=== PATIENT | female | born 1995 ===

== ENCOUNTER → 2020-02-10 15:20 | Outpatient (CLI) | payer OTHER, SELFPAY ==
--- NOTE | 2020-02-10 | DI.US.S_ITS ---
PROCEDURE: US OB >= 14 WEEKS FETUS INDICATIONS: ANATOMY SCAN OUTSIDE/PRIOR DATING DATA: Last menstrual period (LMP): 09/24/2019. LMP-based estimated date of delivery (KEO): 06/30/2020 . First dating scan (date and location): 02/10/2020 . Estimated date of delivery (KEO) from first dating scan: 06/23/2019 TECHNIQUE: Real-time scanning was performed of the fetus, with image documentation and biometric measurements. Endovaginal scanning: No COMPARISON: None. FINDINGS: General: A single living intrauterine gestation is present. Presentation: Breech. Placenta: Placental position is anterior , without previa. Amniotic fluid index: 17.2 cm, normal range is 5-24 cm. heart rate: 141 beats per minute. Maternal cervical canal: 5.3 cm long. Normal lower limit is 2.5 cm. biometrics: Biparietal diameter: 21 weeks 4 days Head circumference: 20 weeks 6 days Abdominal circumference: 20 weeks 6 Femur length: 20 weeks 5 days Estimated gestational age from initial scan: 21 weeks Composite gestational age from present scan: 21 weeks Estimated weight and percentile: 379 g; 90 second percentile Measurement variability for biometric dating: +/- 7 days from 14 weeks to 15 weeks 6 days gestation, +/- 10 days from 16 weeks to 21 weeks 6 days gestation, +/- 2 weeks from 22 weeks to 27 weeks 6 days gestation, +/- 3 weeks for 28 weeks gestation or later. weight reference: 4500 g or EFW >90/95% is considered macrosomia or large for gestational age. EFW <10% is small for gestational age. EFW 5% or less is considered intra-uterine growth restriction. Anatomic survey: Neuro: Ventricles are non-dilated at less than 10 mm. Cisterna magna is normal at 3-11 mm. Cerebellum is normal in size and morphology. Nuchal skin fold: Normal at less than 6 mm between 14-21 weeks gestational age. Face: Nose and lips, facial profile are normal. Spine: No evidence for spina bifida. Heart: 4-chambered heart is present, with normal ventricular outflow tracts. Diaphragm: Diaphragm is intact. Stomach: Left-sided stomach is present. Kidneys: No hydronephrosis. Normal is less than 5 mm in 2nd trimester, less than 7 mm in 3rd trimester. Cord: 3-vessel cord has orthotopic insertion. Bladder: Normal in size. Extremities: All 4 extremities identified. IMPRESSION: 1. Single living fetus with composite gestational age of 21 weeks corresponding to ultrasound KEO of 06/22/2020. 2. Normal anatomic survey. Dictated by: Kev ROCK Interpreted: Keisha Purvis MD on 02/10/2020 at 16:59 Approved by: Keisha Purvis M.D. on 02/10/2020 at 17:03
== END ==
PROVIDERS: Referring Provider Nurse Practitioner Obstetrics & Gynecology; Visit Provider Nurse Practitioner Obstetrics & Gynecology
DX: Z34.93 Encounter for supervision of normal pregnancy, unspecified, third trimester (principal); Z3A.21 21 weeks gestation of pregnancy
CPT/HCPCS: 76811

== ENCOUNTER → 2020-03-09 07:16 | Outpatient (CLI) | payer OTHER, SELFPAY ==
[2020-03-09 08:22] LABS: Glucose Fasting 76 mg/dL (70-100)
[2020-03-09 08:28] LABS: Hematocrit 29.9 % (36-46); Hemoglobin 10.3 g/dL (12.0-16.0); Mean Corpuscular HGB Conc 34.5 % (30-36); Mean Corpuscular Hemoglobin 31.5 PG (26-34); Mean Corpuscular Volume 91.4 fL (80-100); Platelet Count 169 X10^3/uL (150-400); Red Blood Cell Count 3.27 X10^6/uL (4.0-5.2); Red Cell Distribution Width 13.3 % (11.6-14.8); White Blood Cell Count 9.8 X10^3/uL (4.5-11.0)
[2020-03-09 09:35] LABS: Glucose 1 Hour 117 mg/dL (70-170)
[2020-03-09 11:04] LABS: Glucose Tol Interpretation INTERPRETATION
[2020-03-09 11:19] LABS: Glucose 2 Hour 138 mg/dL (70-140)
[2020-03-09 12:03] LABS: Glucose 3 Hour 103 mg/dL (70-115)
== END ==
PROVIDERS: PCP Nurse Practitioner Obstetrics & Gynecology; Referring Provider Nurse Practitioner Obstetrics & Gynecology; Visit Provider Nurse Practitioner Obstetrics & Gynecology
DX: Z34.90 Encounter for supervision of normal pregnancy, unspecified, unspecified trimester (principal); Z13.1 Encounter for screening for diabetes mellitus; Z3A.26 26 weeks gestation of pregnancy
CPT/HCPCS: 36415; 82951; 82952; 85027

== ENCOUNTER → 2020-04-13 15:46 | Outpatient (CLI) | payer OTHER, SELFPAY ==
--- NOTE | 2020-04-13 | DI.US.S_ITS ---
ULTRASOUND OF LEFT BREAST AND AXILLA: 04/13/2020 CLINICAL: Palpable left axilla lump. No prior exams were available for comparison. Color flow and real-time ultrasound of the left breast axilla were performed. Patel scale images of the real-time examination were reviewed. There is a 0.9 cm x 0.8 cm x 0.4 cm oval mass in the left axillary tail. This oval mass is hypoechoic. This correlates as palpated and with area of clinical concern. Color flow imaging demonstrates that there is an adjacent vascularity. IMPRESSION: SUSPICIOUS OF MALIGNANCY The 0.9 cm x 0.8 cm x 0.4 cm oval mass is at a low suspicion for malignancy. An ultrasound guided biopsy is recommended. Findings and recommendations were discussed with the patient during today's examination by Dr. Valadez. A telephone call about results and recommendations was also made by Dr. Gifford later same day. This exam was interpreted at Station ID: [id number]. Electronically Signed By: Jose Gifford M.D. at/:04/18/2020 10:00:03 letter sent: Biopsy Required Ultrasound BI-RADS: 4a Low suspicion for malignancy
--- NOTE | 2020-04-13 | DI.US.S_ITS ---
ULTRASOUND OF RIGHT AXILLA: 04/13/2020 CLINICAL: Palpable right axilla lump. No prior exams were available for comparison. Color flow and real-time ultrasound of the right axilla were performed. Patel scale images of the real-time examination were reviewed. There is a 1.9 cm x 1.3 cm x 1.3 cm wider than tall irregular mass in the right axillary which is under the skin surface without definite tract leading to the skin surface.This irregular mass is hypoechoic with no fatty hilum. Color flow imaging demonstrates that there is vascularity present. IMPRESSION: SUSPICIOUS OF MALIGNANCY The 1.9 cm x 1.3 cm x 1.3 cm wider than tall irregular mass has a differential diagnosis of a sebaceous cyst or an abnormally enlarged lymph node and is suspicious of malignancy. An ultrasound guided biopsy is recommended. Findings and recommendations were discussed with the patient during today's examination by Dr. Valadez. A telephone call about results and recommendations was also made by Dr. Gifford later same day. This exam was interpreted at Station ID: [id number]. Electronically Signed By: Jose Gifford M.D. at/:04/18/2020 10:00:32 letter sent: Biopsy Required Ultrasound BI-RADS: 4 Suspicious for malignancy
== END ==
PROVIDERS: PCP Nurse Practitioner Obstetrics & Gynecology; Referring Provider Nurse Practitioner Obstetrics & Gynecology; Visit Provider Nurse Practitioner Obstetrics & Gynecology
DX: O92.29 Other disorders of breast associated with pregnancy and the puerperium (principal)
CPT/HCPCS: 76882

== ENCOUNTER → 2020-05-02 09:04 | Outpatient (CLI) | payer OTHER, SELFPAY ==
--- NOTE | 2020-05-02 | DI.US.S_ITS ---
ULTRASOUND GUIDED BIOPSY RIGHT BREAST WITH MARKING DEVICE INSERTED AND POST ULTRASOUND IMAGIN05/02/2020 CLINICAL: Right axillary node biopsy with vision clip placement. PATIENT CONSENT: Risks (minor bleeding, infection, vasovagal reaction and repeat procedure), benefits and alternatives were explained to the patient and written informed consent was obtained. Correlation is made to exams dated: 04/13/2020 [facility] and 04/13/2020 [facility]. An ultrasound guided biopsy using real-time ultrasound was performed for the 1.9 cm x 1.3 cm x 1.3 cm mass located in the right axillary tail. The skin was prepped in the usual manner. Local anesthetic was administered to the access site. A skin douglas was made in the breast. The abnormality was approached from the lateral aspect. An 18 gauge biopsy needle was placed adjacent to the abnormality through an introducer device under ultrasound guidance. Once the needle was documented to be in the correct location, six cores were obtained using an automated biopsy gun. A clip was inserted into the biopsy cavity. A sterile dressing was applied to the access site. Post procedure ultrasound imaging demonstrates the location device at the targeted area. The specimens were sent to the laboratory for pathological analysis. Post-procedure mammogram not performed as patient is currently . IMPRESSION: ULTRASOUND GUIDED BIOPSY BENIGN Ultrasound guided biopsy of the 1.9 cm x 1.3 cm x 1.3 cm mass in the right axillary tail was successful with no apparent post procedure complications. Pathology indicates benign lactational change (LC). Recommend clinical followup. The previously seen palpable mass in the contralateral left breast was not reproduced on today's left breast ultrasound, so no left axillary biopsy was performed. Recommend 6 month follow up ultrasound for further evaluation. Findings and recommendations were discussed with the patient at the time of the exam. Future imaging is recommended as follows: 10/30/2020 follow-up left ultrasound. This exam was interpreted at Station ID: [id number]. Shahzad byers,acr/:05/04/2020 17:39:52
--- NOTE | 2020-05-02 | PATH_ITS ---
[facility] Accession Number: [id number] . 01 Material submitted: . axilla - RIGHT AXILLA . 01 Clinical history: . BILATERAL AXILLA BIOPSY . 01 Diagnosis: Soft Tissue, Right Axilla, Needle Core Biopsy: Benign breast tissue with lactational-like change. Negative for significant atypia and malignancy. See comment. [facility] 05/03/2020 1808 Local . 01 Comment: The presence of breast tissue in the axilla may represent axillary tail or accessory breast tissue. . 01 Electronically signed: . Cristina Lindquist MD, Pathologist NPI- [id number] . 01 Gross description: . RIGHT AXILLA: Received in formalin are multiple fragment(s) of dorsey, soft tissue measuring 0.1 x 0.1 x 0.1 cm to 0.6 x 0.1 x 0.1 cm submitted entirely in 1 cassette(s) /GERARD 05/02/2020 2303 Local . 01 Pathologist provided ICD-10: R22.2 . 01 CPT . 250727 Performed at: 01 [facility] [address] [place] [address], [place], [place] [id number] MD Benson Lee MD Phone: [phone]
== END ==
PROVIDERS: PCP Nurse Practitioner Obstetrics & Gynecology; Referring Provider Nurse Practitioner Obstetrics & Gynecology; Visit Provider Nurse Practitioner Obstetrics & Gynecology
DX: N63.31 Unspecified lump in axillary tail of the right breast (principal)
CPT/HCPCS: 38505; 76942

== ENCOUNTER → 2020-06-04 12:50 | Outpatient (ROUT) | payer OTHER, SELFPAY | PROVIDERS: PCP Nurse Practitioner Obstetrics & Gynecology; Visit Provider Nurse Practitioner Obstetrics & Gynecology | DX: Z34.90 Encounter for supervision of normal pregnancy, unspecified, unspecified trimester (principal); Z36.85 Encounter for antenatal screening for Streptococcus B; Z3A.36 36 weeks gestation of pregnancy | CPT/HCPCS: 87081 ==

== ENCOUNTER 2020-06-27 05:44 | Inpatient (IN) | payer OTHER, SELFPAY ==
--- NOTE | 2020-06-27 06:26 | PM.OBHP.1 ---
OB HPI Date/Time Date of admission: 06/27/20 Date Patient Seen: 06/27/20 Time Patient Seen: 06:00 History of Present Condition Chief complaint: Evaluation of Labor : 1 Para: 0 Estimated Date of Delivery: 06/30/20 Estimated Gestational Age (weeks): 39.4 Narrative: Yuli Sánchez is a 25 year old female @ [id number] here for evaluation of labor. Awoke @ 0300 w/ contractions that rapidly progressed in frequency and intensity. No VB or LOF. Now breathing through, moaning and swaying with strong contractions every 2 minutes. Uncomplicated PN care w/ CNM. Planning low intervention . Supported by , Grzegorz, and Claire dennis. History of Present care: good care, initiated at week # (8), number of visits (11) and pounds weight gain (41) Dating criteria: LMP confirmed by 1st trimester US Ultrasounds: normal mid trimester US Obstetrical complications: none Medical complications: other (Bialteral axillary masses, benign) Preadmission Labs Blood type: AB (+) positive -: Antibody screen: negative, GBS status: negative, HBsAG: negative, HIV: negative and RPR/VDLR: negative -: Chlamydia screen: not detected and Gonorrhea screen: not detected -: Rubella: immune PAP: Normal Cell-free DNA: Negative, male 3 hr GTT: 1 hr (117), 2 hr (138) and 3 hr (103) Fasting blood glucose: 76 Evaluation Evaluation Baseline heart rate: 130 Variability: Moderate (11-25) monitor accelerations: Present monitor decelerations: Absent Uterine Contraction Intensity: Strong/Firm Status: Category l Cervical dilation (cm): 4 Cervical effacement (%): 100 station: 0 PFSH Social History (Updated 06/27/20 @ 06:34 by Margy Prieto CNM) marital status: household members: spouse lives independently: Yes caregiver/support person: No education level: college occupational status: employed Smoking Status: Never smoker Meds Home Medications and Allergies Home Medications Medication Instructions Recorded Confirmed Type No Known Home Medications 06/27/20 06/27/20 History Allergies Allergy/AdvReac Type Severity Reaction Status Date / Time No Known Drug Allergies Allergy Verified 06/27/20 06:41 Review of Systems Review of Systems ROS: Yes All systems reviewed with the patient and are negative except as otherwise documented Exam Vital Signs (past 8 hours): BP 110/64, HR 66bpm, Afebrile Presentation: vertex Objective Labs Result Diagrams: 06/27/20 06:00 Labs: SARS-CoV-2: negative upon admission Assessment and Plan Assessment and Plan Assessment and Plan narrative: A: Term nullipara Active labor Anemia-resolved Thrombocytopenia No indication for GBS prophylaxis Cat I FHR P: Admit, routine orders. FHR by IA. Continuous labor support. Reassess in 4 hours or sooner, PRN.
[2020-06-27 06:41] VITALS: BP 110/60
[2020-06-27 07:19] LABS: Add Manual Diff / Slide Review NO; Basophils Absolute Auto 100 /uL (0-100); Basophils Percent Auto 0.8 % (0-2); Eosinophils Absolute Auto 100 /uL (0-450); Eosinophils Percent Auto 0.9 % (2-4); Hematocrit 34.5 % (36-46); Hemoglobin 11.4 g/dL (12.0-16.0); Lymphocytes Absolute Auto 2800 /uL (1100-4500); Lymphocytes Percent Auto 24.3 % (25-40); Mean Corpuscular Hemoglobin 28.8 PG (26-34); Mean Corpuscular Volume 87.3 fL (80-100); Monocytes Absolute Auto 800 /uL (0-900); Monocytes Percent Auto 7.4 % (3-14); Neutrophils Absolute Auto 7600 /uL (1500-7000); Neutrophils Percent Auto 66.6 % (50-75); Platelet Count 135 X10^3/uL (150-400); Red Blood Cell Count 3.96 X10^6/uL (4.0-5.2); Red Cell Distribution Width 16.1 % (11.6-14.8); White Blood Cell Count 11.4 X10^3/uL (4.5-11.0)
[2020-06-27 08:28] LABS: COVID19 - ADMIT (NP swab/PCR) Negative (Negative)
--- NOTE | 2020-06-27 08:46 | PM.OBPNLAB ---
Date/Time Date Patient Seen: 06/27/20 Time Patient Seen: 08:46 Pain Control Pain control: epidural Comments: Yuli labored well in the tub, in the room on hands and knees and on the ball. Requested an epidural with sensation of increasing rectal pressure. Now comfortable after combined spinal/epidural. Pelvic Exam Dilation (cm): 9 Effacement (%): 100 station: 0 Amniotic membrane status: Bulging Contractions Contractions on admission: regular Monitor mode: External Pitocin rate (mU/min): 0 Contraction frequency (min): 3 Contraction duration (min): 1 Contraction pattern: Regular Contraction intensity: Strong/Firm Status status: Category l Heart Rate Baseline: 150 Monitor Accelerations: Present Monitor Decelerations: Early Monitor Variability: Moderate Assessment and Plan Assessment: active labor Plan: continuous present management Comments: Anticipate NSVB. Reassess in 2-3 hours or sooner, PRN.
--- NOTE | 2020-06-27 08:48 | PM.AN.REGBLK ---
Regional Block Pre-procedure Procedure: Continuous Lumbar Epidural for L&D Attending OB provider: Margy Prieto PMH/GAURAV narrative: term labor, no complications Hx: No personal or family history of anesthesia problems. ASA Class: II Labs: Hct 34.5 % (36-46) L 06/27/20 06:00 Plt Count 135 X10^3/uL (150-400) L 06/27/20 06:00 Medications: Current Medications Generic Name Dose Route Start Last Admin Trade Name Freq PRN Reason Stop Dose Admin Carboprost Tromethamine 250 mcg 06/27/20 07:04 Carboprost 250 Mcg/Ml Ampul IM Q90M PRN Bleeding Lactated Ringer's 1,000 mls @ 100 mls/hr 06/27/20 07:15 Lactated Ringers IV CONT RODERICK Oxytocin/Lactated Ringer's 30 unit in 500 mls @ 200 mls/hr 06/27/20 07:04 Oxytocin Premix IV CONT PRN Bleeding Protocol Tranexamic Acid 1,000 mg/ 100 mls @ 400 mls/hr 06/27/20 07:04 Sodium Chloride IV NOW PRN Bleeding Methylergonovine Maleate 0.2 mg 06/27/20 07:04 Methylergonovine 0.2 Mg Tablet PO Q6HR PRN Heavy Bleeding Methylergonovine Maleate 0.2 mg 06/27/20 07:04 Methylergonovine 0.2 Mg/Ml Vial IM NOW PRN Bleeding Misoprostol 800 mcg 06/27/20 07:04 Misoprostol 200 Mcg Tablet MO NOW PRN Bleeding Misoprostol 1,000 mcg 06/27/20 07:04 Misoprostol 200 Mcg Tablet MO NOW PRN Bleeding Misoprostol 400 mcg 06/27/20 07:04 Misoprostol 200 Mcg Tablet SL NOW PRN Bleeding Oxytocin 10 unit 06/27/20 07:04 Oxytocin 10 Unit/Ml Vial IM NOW PRN Bleeding Allergies: Allergies Allergy/AdvReac Type Severity Reaction Status Date / Time No Known Drug Allergies Allergy Verified 06/27/20 06:41 Procedure Insertion date: 06/27/20 Insertion time: 08:30 Prep/Local: betadine x3 Interspace: L3-4 Patient position: sitting Needle: 18 gauge Slick (CSE: 27g Pencan through Juan Albertotead, clear CSF, 1mL 0.25% bupiv MPF) Loss of resistance with: saline KRYSTIN at (cm): 4 Catheter placed at SKIN (cm): 9 Catheter in SPACE (cm): 5 Insertion: No CSF, No Blood, No Paresthesia with insertion, No Paresthesia with injection and No Test dose reaction Initial Medications TEST DOSE time: 08:33 TEST DOSE: 1.5% lidocaine with epinephrine 1:200k (mL): 3 Infusion INFUSION: 0.125% bupivacaine and with fentanyl 2 mcg/mL Initial rate (mL/hr): 6 Subsequent interventions: 12:50 50mcg fentanyl and 5mL 0.25% bupivacaine, rate to 8mL/h. 15:20 to OR for CS Post-procedure Anesthesia time START: 08:30 Anesthesia time END: 15:20
[2020-06-27] MEDS: LACTATED RINGERS 1,000 ML 100 ML IV ×2 (09:19→16:15)
[2020-06-27] MEDS: FENT 2MCG/ML BUPIV 0.125% EPI 200 MCG/100 ML PLAST..BAG 10 MCG EPIDURAL (09:20)
--- NOTE | 2020-06-27 10:47 | PM.OBPNLAB ---
Date/Time Date Patient Seen: 06/27/20 Time Patient Seen: 10:47 Pain Control Pain control: tolerating well and epidural Comments: Yuli remains comfortable w/ epidural anesthesia. Has been able to rest and has good leg control for position changes. Pelvic Exam Dilation (cm): 9 Effacement (%): 100 station: 0 Amniotic membrane status: Bulging Comments: 0930- AROM, copious meconium stained fluid and OP position Contractions Date/Time contractions began: 0300 Contractions on admission: regular Monitor mode: External (coupling) Contraction frequency (min): 3 Contraction pattern: Regular Contraction intensity: Moderate (palpated during cervical exam) Status status: Category ll Heart Rate Baseline: 130 Monitor Accelerations: Present Monitor Decelerations: Early (recurrent. position dependent) and Variable (rare) Monitor Variability: Moderate Assessment and Plan Assessment: active labor Plan: begin patient augmentation Comments: COunseled on meconium stained amniotic fluid and will have RT at . Counseled on persistent OP position w/ minimal descent and recommendations for positions (exaggerated [employer]) and pitocin augmentation. Reassess in 2 hours or sooner, PRN.
[2020-06-27] MEDS: OXYTOCIN PREMIX 30 UNIT/500 ML PLAST..BAG IV (10:58)
--- NOTE | 2020-06-27 13:20 | P.PNOB_ITS ---
Date/Time Date Patient Seen: 06/27/20 Time Patient Seen: 12:50 Pain Control Pain control: tolerating well and epidural Comments: Patient has labored well in lots of different positions. VSS, see OBIX. Pelvic Exam Dilation (cm): 9 Effacement (%): 100 station: 0 Amniotic membrane status: Leaking (meconium stained amniotic fluid) Contractions Contractions on admission: regular Monitor mode: External (coupling) Pitocin rate (mU/min): 2 Contraction frequency (min): 3 Contraction duration (min): 1 Contraction pattern: Regular Contraction intensity: Strong/Firm (palpated during cervical exam) Intrauterine tone measurement: 185 Status status: Category ll Heart Rate Baseline: 130 Monitor Accelerations: Present Monitor Decelerations: Early Monitor Variability: Moderate Comments: IUPC placed position has changed from ROP to LOT w/ position changes Assessment and Plan Assessment: active labor Plan: continuous present management Comments: Counseled patient on no descent or cervical dilation in 4 hours. IUPC placed and contractions are borderline adequate. Recommend 2 hours of adequate contractions, then reassess. If no change, will recommend primary for arrest of active phase labor. Patient is agreeable to this, if needed. Notified anesthesia and Dr.Lawndale/OB back-up of possible in 1-2 hours.
--- NOTE | 2020-06-27 14:54 | PM.OBPNLAB ---
Date/Time Date Patient Seen: 06/27/20 Time Patient Seen: 14:45 Pain Control Pain control: epidural Pelvic Exam Dilation (cm): 9 Effacement (%): 100 station: 0 Amniotic membrane status: Leaking (meconium stained amniotic fluid) Comments: IUPC pulled w/ unchanged exam Contractions Monitor mode: External (coupling) Pitocin rate (mU/min): 7 (pitocin shut off after unchanged CE) Contraction frequency (min): 3 Contraction duration (min): 1 Contraction pattern: Regular Contraction intensity: Strong/Firm (palpated during cervical exam) Intrauterine tone measurement: 205 Status status: Category ll Heart Rate Baseline: 135 Monitor Accelerations: Present Monitor Decelerations: Variable (rare) Monitor Variability: Moderate Assessment and Plan Assessment: active labor Plan: Comments: Consulted for primary for arrest of active phase labor. ALEXANDRIA Hinojosa notified the OR.
--- NOTE | 2020-06-27 15:14 | PM.OBPNLAB ---
Date/Time Date Patient Seen: 06/27/20 Time Patient Seen: 15:14 Pain Control Pain control: epidural Pelvic Exam Dilation (cm): 9 Effacement (%): 100 station: 0 Amniotic membrane status: Leaking (meconium stained amniotic fluid) Contractions Monitor mode: External (coupling) Pitocin rate (mU/min): 7 Contraction frequency (min): 3 Contraction pattern: Regular Contraction intensity: Strong/Firm (palpated during cervical exam) Intrauterine tone measurement: 205 Status status: Category ll Heart Rate Baseline: 135 Monitor Accelerations: Present Monitor Decelerations: Variable Monitor Variability: Moderate Assessment and Plan Plan: Comments: Consulted due to arrest of dilation at 9cm for 7.5 hours, despite IUPC guided pitocin augmentation. Cat 2 EFM though with reassuring features, fetus largely in OP presentation. Discussed risks of infection, damage to surrounding organs, hemorrhage, risks in future pregnancies of abnormal placentation or uterine rupture. Compared these to odds of successful and safe vaginal delivery if continued labor. Informed consent obtained and consents signed. - 500mg azithromycen, 2g ancef - proceed with low transverse section
--- NOTE | 2020-06-27 15:28 | SUR.OPER ---
Supine on Padded OR bed, head on pillow, safety belt at thigh, arms secured on padded arm boards at <90 degrees abduction. Bump under right buttock. Legs uncrossed with pillow under knees, gel pad to heels, tape over blanket to lower legs.
[2020-06-27] MEDS: AZITHROMYCIN 500 MG in DEXTROSE 5% IN WATER 250 ML IV (15:31)
[2020-06-27] MEDS: CEFAZOLIN 2 GM/100 ML FROZ.PIGGY IV (15:41)
--- NOTE | 2020-06-27 15:56 | SUR.OPER ---
Viable male delivered at 1547. Cord blood and placenta sent with L&D nurse.
--- NOTE | 2020-06-27 16:35 | SUR.OPER ---
Gonsalez catheter emptied at end of case. 675mL in total.
[2020-06-27 16:42] VITALS: BP 124/79; PULSE 118; RESP 16; TEMP 36.8; O2SAT 99
--- NOTE | 2020-06-27 16:44 | P.OP_ITS ---
Operative Date/Time/Diagnoses Date of procedure: 06/27/20 Time of procedure: 16:44 Pre-op diagnosis: arrest of labor Post-op diagnosis: same Procedure & Clinicians Procedure: Primary section Same procedure as scheduled: Yes Indications: Labor arrest in the active stage Surgeon: Jessica Phelps Paving Stone Installer: Margy Prieto Reason for Paving Stone Installer: Assistance with retraction, exposure, effecting delivery Anesthesia Type: Epidural Operative Notes Findings: Male infant in cephalic, OP presentation, apgars 6+8, weight 8#11.7. Normal uterus, tubes, ovaries. Closure Type: primary Specimen(s): cord blood Intraoperative meds administered: Ketorolac and Pitocin Applied: Catheter Estimated Blood Loss (mL): 1,200 Blood products transfused: none Procedure in detail: EBL: 1200ccs Fluids: 1200ccs LR UOP: 675 cc red tinged urine. Gonsalez was not emptied prior to case, had clots and red tinged prior to beginning . Procedures: The patient was taken to the operating room where spinal anesthesia was placed and found to be adequate. She was prepped and draped in the normal sterile fashion in the dorsal supine position with a leftward tilt. Vaginal prep was performed. A Pfannenstiel skin incision was made with a scalpel and carried through to the underlying layer of fascia. The fascia was incised in the midline and the incision extended laterally with Ramachandran scissors. The superior aspect of this incision was grasped with Isabell clamps, elevated, and the underlying rectus muscles dissected off bluntly and with the curved Ramachandran scissors. Attention was then turned to the inferior aspect of this incision which, in a similar fashion, was grasped, tented up with the Isabell clamps, and the rectus muscles dissected off bluntly and with the curved Ramachandran scissors. The rectus muscles were then in the midline, and the peritoneum identified, tented up, and entered bluntly. The peritoneal incision was extended superiorly and inferiorly with good visualization of the bladder. The bladder blade was inserted and the vesicouterine peritoneum identified, grasped with pickups, and entered sharply with the Metzenbaum scissors. This incision was extended laterally, and the bladder flap created digitally. The bladder blade was then reinserted and the lower uterine segment incised in transverse fashion with the scalpel. The uterine incision was bluntly extended laterally. The bladder blade was removed, and the 's head delivered atraumatically. After 30 seconds of delayed cord clamping, the cord was clamped and cut. The nose and mouth were suctioned as needed with a bulb syringe, and the infant was handed off to awaiting pediatricians. Delivery was notable for reduction of a loose nuchal cord and for light meconium. The placenta was then removed spontaneously, and the uterus was exteriorized and cleared of all clots and debris. The uterine incision was repaired with 1-0 chromic in a running, locked fashion and a 2nd layer of the same suture was used to obtain excellent hemostasis. The uterus was returned to the abdomen, and the gutters were cleared of all clots and debris. The bladder flap was closed with 2-0 Vicryl in a running fashion, the peritoneum was closed with 3-0 Vicryl, and the fascia reapproximated with 0 Vicryl in a running fashion. The subcutaneous layer was placed with 3 0 Vicryl in an interrupted fashion and the skin was closed with 4-0 biosyn in a running fashion. The patient tolerated the procedure well. Sponge lap and needle counts were correct x2. 2 g of Ancef and 500mgAzithromycin were given at commencement of the case. The patient was taken to the recovery room in stable condition. Complications: none [place] Baby 1: Gender: Male Presentation: vertex Position: Occiput Posterior Placental Delivery Description: Manual Removal Cord Vessel Description: 3 Vessels and Nuchal Cord (x1) score (1 min): 6 score (5 min): 8 weight: 8 lb 11 oz Post-operative Condition: stable Disposition: PACU Aftercare: routine postop
[2020-06-27 16:46] VITALS: BP 121/88; PULSE 107; RESP 16; O2SAT 99
[2020-06-27 16:51] VITALS: BP 120/78; PULSE 99; RESP 18; O2SAT 100
[2020-06-27 17:02] VITALS: BP 119/89; PULSE 101; RESP 17; TEMP 37.3; O2SAT 99
[2020-06-27] MEDS: OXYCODONE IR 5 MG TABLET PO (17:11)
--- NOTE | 2020-06-27 17:35 | SUR.PHASEI ---
Stable PACU stay, shakes slightly still present better after bear huggar used. Pt medicated with percolone prior to transfer. Pt left with ALEXANDRIA Hinojosa in stable condition.
--- NOTE | 2020-06-27 18:13 | SUR.PHASEI ---
Late entry: Urine in reyes pink tinged, Dr. Noyola made aware, she stated Dr. Phelps was aware as well.
--- NOTE | 2020-06-27 19:51 | PM.PROC.1 ---
Procedures Date/Time Date of procedure: 06/27/20 Time of procedure: 15:47 General Procedure description: I assisted the OB credit operations processor in the section for this patient. My responsibilities included retracting and suctioning, providing fundal pressure during delivery and following with suture during closure. Please see the OB's note for details of the surgery.
[2020-06-27] MEDS: ACETAMINOPHEN 325 MG TABLET 650 MG PO (20:00)
[2020-06-27] MEDS: OXYCODONE IR 10 MG TABLET PO (20:00)
[2020-06-27] MEDS: KETOROLAC 30 MG/ML VIAL IV (23:30)
[2020-06-28] MEDS: OXYCODONE IR 10 MG TABLET PO ×4 (00:15→11:57)
[2020-06-28] MEDS: KETOROLAC 30 MG/ML VIAL IV ×2 (06:00→11:57)
[2020-06-28 07:02] LABS: Hematocrit 22.2 % (36-46); Hemoglobin 7.4 g/dL (12.0-16.0)
[2020-06-28] MEDS: ACETAMINOPHEN 325 MG TABLET 650 MG PO ×3 (08:25→20:40)
[2020-06-28] MEDS: DOCUSATE 250 MG CAPSULE PO (08:27)
--- NOTE | 2020-06-28 09:48 | P.PNOB_ITS ---
Subjective - OB Subjective Patient comments: no complaints, pain well controlled, incisional pain and tolerating diet baby status: doing well Narrative: This patient is postop day 1 status post primary section for arrest of dilation in the active stage of labor, complicated by hemorrhage intraoperative uterine atony that resolved intraoperatively. Lochia has improved, patient feeling well, ambulating well despite hemoglobin drop. Ro utine postoperative precautions. Anticipate discharge tomorrow. Date Patient Seen: 06/28/20 Time Patient Seen: 09:31 Exam Vital Signs (past 8 hours): 105/67, HR 75, afebrile Oxygen Delivery Method Room Air Narrative Exam Narrative: Patient resting in bed. Reports good pain control, ambulating, voiding, moderate lochia. Has not yet passed flatus. No PIH symptoms. Const General: cooperative, healthy appearing and comfortable Resp Effort & Inspection: normal respiratory effort Auscultation: clear to auscultation bilaterally Cardio Rate: regular rate Rhythm: regular rhythm GI Palpation: soft and No tender Other: Fundus firm, at U Extrem General: normal to inspection Objective Labs Result Diagrams: 06/28/20 06:20 Labs: Laboratory Results - last 24 hr 06/28/20 06:20 Hgb 7.4 L Hct 22.2 L Assessment & Plan Plan day: 1 plan OB: routine postop care Comments: Patient doing well, meeting postoperative goals. Hemoglobin dropped consistent with intraoperative blood loss, patient otherwise doing well. For discussion of iron supplementation. Anticipate discharge tomorrow. Time Spent With Patient Time: Total time spent is greater than 50% in coordination of care (as documented) at patient's floor/unit and/or counseling patient: Time with patient: 15-24 minutes
[2020-06-28] MEDS: IRON SUCROSE 200 MG in SODIUM CHLORIDE 0.9% 100 ML 220 ML IV (11:57)
[2020-06-28] MEDS: OXYCODONE IR 5 MG TABLET PO ×2 (16:27→20:46)
[2020-06-28] MEDS: IBUPROFEN 600 MG TABLET PO (19:24)
[2020-06-29] MEDS: IBUPROFEN 600 MG TABLET PO ×3 (01:42→15:31)
[2020-06-29] MEDS: OXYCODONE IR 5 MG TABLET PO ×4 (01:42→15:28)
[2020-06-29] MEDS: ACETAMINOPHEN 325 MG TABLET 650 MG PO ×2 (06:06→15:31)
[2020-06-29] MEDS: DOCUSATE 250 MG CAPSULE PO (07:49)
--- NOTE | 2020-06-29 09:38 | PM.OBDS.1 ---
Discharge Providers Provider Date of admission: 06/27/20 05:44 Discharge Date: 06/29/20 Primary care physician: Margy Prieto CNM Consults: 06/27/20 17:46 Consult to Instrument Operator Routine Comment: Discharge provider: Jessica Phelps MD Summary Hospital Course Date Patient Seen: 06/29/20 Time Patient Seen: 09:38 Diagnoses: arrest of dilation Hospital Course: This patient was admitted in labor, and after arrest of dilation at 9 cm, Peripartum Data Delivery Method: Section Procedures: primary section for arrest of dilation at 9cm complications: none 1: Gender: Male Disposition of : home Status at Discharge Cognitive/behavioral status at discharge: oriented Functional status at discharge: independent ambulation Overall status at discharge: patient is progressing back to baseline Time Spent with Patient Time attestation: Total time spent providing and/or coordinating discharge services: Time spent: Less than 30 minutes Objective Labs Result Diagrams: 06/28/20 06:20 Exam Vital Signs (past 8 hours): 107/74, heart rate 78, respiratory rate 16, temperature 98? F Oxygen Delivery Method Room Air Const General: cooperative, healthy appearing and comfortable Other: Patient resting in bed, comfortable appearing. Reports good pain control, ambulating, voiding, moderate lochia. No chest pain, trouble breathing, PIH symptoms, anemia symptoms. Tolerating p.o.. Patient uncertain if passing flatus reports not been paying attention to flatus, no signs or symptoms of ileus. Resp Effort & Inspection: normal respiratory effort Auscultation: clear to auscultation bilaterally Cardio Rate: regular rate Rhythm: regular rhythm GI Inspection: incision (Clean, dry, intact) Palpation: soft (Not distended, mildly tympanic) and No tender Extrem General: normal to inspection Discharge Plan Discharge Plan Patient Disposition: Home Discharge orders & Medications Prescriptions: New oxycodone 5 mg tablet 5 mg PO Q6H PRN (Reason: pain) Qty: 20 RF: 0 No Action No Known Home Medications RF: 0 Follow up/Referrals: Jessica Phelps MD [Physician] - 1 Week (incision check) Margy Prieto CNM [Primary Care Provider] - 6 Weeks Diet/Activity/Treatments Diet: Regular Activity: Nothing in the vagina for 6 weeks. Avoid lifting more than 10 lbs for 6 weeks. If you have increasing bleeding, fevers, chills, nausea, vomiting, pain, headaches, chest pain, trouble breathing, or any other symptoms, call [phone] or come to the emergency room. Skin/Wound/Dressing Care Report to your healthcare provider any signs of infection, such as:: chills, fever, night sweats, increased pain and unusual drainage Visit Report/Discharge Packet Instructions: DI for Discharge Data Primary Care Provider: Margy Prieto
[2020-06-29] MEDS: IRON SUCROSE 300 MG in SODIUM CHLORIDE 0.9% 100 ML 115 ML IV (11:01)
[2020-06-29 14:00] VITALS: BP 107/74; PULSE 78; RESP 16; TEMP 36.7
[2020-06-29] MEDS: LANOLIN OINT 7 GM 1 APPLIC TOP (16:05)
== END 2020-06-29 16:17 | disposition home or self-care (01) | DRG 788 ==
PROVIDERS: Obstetrics & Gynecology; Admitting Provider Nurse Practitioner Obstetrics & Gynecology; PCP Nurse Practitioner Obstetrics & Gynecology; Referring Provider Nurse Practitioner Obstetrics & Gynecology; Visit Provider Nurse Practitioner Obstetrics & Gynecology
PROC: 10D00Z1 Extraction of Products of Conception, Low, Open Approach (ICD-10-PCS; CPT 59514; principal; 2020-06-27 15:00)
DX: O62.1 Secondary uterine inertia (principal); Z3A.39 39 weeks gestation of pregnancy; Z37.0 Single live birth; O77.0 Labor and delivery complicated by meconium in amniotic fluid; O69.81X0 Labor and delivery complicated by cord around neck, without compression, not applicable or unspecified; Z20.822 Contact with and (suspected) exposure to COVID-19
CPT/HCPCS: 01967; 01968; 36415; 59050; 59514; 85014; 85018; 85025; 86850; 86900; 86901; 87635; G0379; J0690; J1756; J1885; J2274; J2405; J2590; J2704; J3010

== ENCOUNTER → 2021-07-11 12:03 | Outpatient (CLI) | payer OTHER, SELFPAY ==
--- NOTE | 2021-07-11 | DI.US.S_ITS ---
PROCEDURE: US OB >= 14 WEEKS FETUS INDICATIONS: 20 WEEK ANATOMY OUTSIDE/PRIOR DATING DATA: Last menstrual period (LMP): 01/26/2021. LMP-based estimated date of delivery (KEO): 11/02/2021. First dating scan (date and location): 07/11/2021. Estimated date of delivery (KEO) from first dating scan: 11/14/2021. TECHNIQUE: Real-time scanning was performed of the fetus, with image documentation and biometric measurements. Endovaginal scanning: None COMPARISON: [facility], OB >= 14 WEEKS FETUS, 02/10/2020, 15:30. FINDINGS: General: A single living intrauterine gestation is present. Presentation: Transverse. Placenta: Placental position is posterior. Placental edge is 2.3 cm from the internal os. Amniotic fluid index: 13.1 cm, normal range is 5-24 cm. heart rate: 150 beats per minute. Maternal cervical canal: 5.4 cm long. Normal lower limit is 2.5 cm. biometrics: Biparietal diameter: 5.3 cm, 22 week 0 day Head circumference: 20.0 cm, 22 week 1 day Abdominal circumference: 18.0 cm, 22 week 6 day Femur length: 3.4 cm, 21 week 1 day Clinically estimated gestational age: 23 week 5 day Composite gestational age from present scan: 22 week 0 day Estimated weight and percentile: 479 g, 2nd percentile Anatomic survey: Neuro: Ventricles are non-dilated at less than 10 mm. Cisterna magna is normal at 3-11 mm. Cerebellum is normal in size and morphology. Nuchal skin fold: Normal at less than 6 mm between 14-21 weeks gestational age. Face: Nose and lips, facial profile are normal. Spine: No evidence for spina bifida. Heart: 4-chambered heart is present, with normal ventricular outflow tracts. Diaphragm: Diaphragm is intact. Stomach: Left-sided stomach is present. Kidneys: No hydronephrosis. Normal is less than 5 mm in 2nd trimester, less than 7 mm in 3rd trimester. Cord: 3-vessel cord has orthotopic insertion. Bladder: Normal in size. Extremities: All 4 extremities identified. IMPRESSION: 1. Single live intrauterine consistent with a 22 week 0 day gestation by current ultrasound 2. Low lying placenta is within 2.3 cm of the internal os. 3. EFW 479 g is at the 2nd percentile, given reported LMP Approved by: Jaxon Mckeon M.D. on 07/11/2021 at 13:32
== END ==
PROVIDERS: Referring Provider Nurse Practitioner Obstetrics & Gynecology; Visit Provider Nurse Practitioner Obstetrics & Gynecology
DX: O44.42 Low lying placenta NOS or without hemorrhage, second trimester (principal); Z3A.22 22 weeks gestation of pregnancy
CPT/HCPCS: 76811

== ENCOUNTER → 2021-08-09 07:22 | Outpatient (CLI) | payer OTHER, SELFPAY ==
[2021-08-09 09:11] LABS: Hematocrit 31.4 % (36-46); Mean Corpuscular HGB Conc 34.9 % (30-36); Mean Corpuscular Hemoglobin 31.6 PG (26-34); Mean Corpuscular Volume 90.4 fL (80-100); Platelet Count 158 X10^3/uL (150-400); Red Blood Cell Count 3.47 X10^6/uL (4.0-5.2); Red Cell Distribution Width 13.6 % (11.6-14.8); White Blood Cell Count 8.4 X10^3/uL (4.5-11.0)
[2021-08-09 09:50] LABS: GTT (PREG) 1 Hour PP 50gm Dose 134 mg/dL (76-139)
== END ==
PROVIDERS: PCP Nurse Practitioner Obstetrics & Gynecology; Referring Provider Nurse Practitioner Obstetrics & Gynecology; Visit Provider Nurse Practitioner Obstetrics & Gynecology
DX: Z34.90 Encounter for supervision of normal pregnancy, unspecified, unspecified trimester (principal); Z13.1 Encounter for screening for diabetes mellitus; Z3A.26 26 weeks gestation of pregnancy
CPT/HCPCS: 36415; 82950; 85027